=== PATIENT | female | born 1955 | race Asian ===

== ENCOUNTER 2016-08-26 20:33 | Emergency (ER) | payer MEDICAID ==
[~2016-08-26] VITALS: Ht 165.1 cm; Wt 49.9 kg
[2016-08-26 20:35] VITALS: BP_SYST 129
--- NOTE | 2016-08-26 20:35 | NUR ---
PT IN WAITING ROOM AWAITING AVAILABLE BED. STABLE.
[2016-08-26 22:10] LABS: BILIRUBIN,URINE NEGATIVE (NEGATIVE); BLOOD, URINE 2+ (NEGATIVE); CLARITY/URINE CLEAR (CLEAR); COLOR,URINE YELLOW (YELLOW); GLUCOSE,URINE NEGATIVE (NEGATIVE); KETONES,URINE NEGATIVE (NEGATIVE); LEUKOCYTE ESTERASE ,URINE NEGATIVE (NEGATIVE); NITRITE, URINE NEGATIVE (NEGATIVE); PROTEIN URINE NEGATIVE (NEGATIVE); UROBILINOGEN,URINE 0.2 (0.2-1.0)
--- NOTE | 2016-08-26 22:25 | NUR ---
Patient to ER bed 2 to gown for evaluation. Side rails up. Report given to HAILEY SHANNON.
[2016-08-26 22:28] LABS: BACTERIA,URINE RARE /HPF (None Seen); WBC,URINE 0-3 /HPF (0-3)
--- NOTE | 2016-08-26 22:40 | NUR ---
Pt came into the ER in stable condition. Pt c/o mid abd pain 09/02 since yesterday. Pt stated that pain is consistent. Pt denies any N/D. Pt stated that she recently had a colonoscopy done was told she has an ulcer and has been medicated for it. Pt has a hx of breast CA, thyroid CA, high cholesterol and pre diabetic. -sob -chest pain. No acute distress noted at this time, will continue to monitor
--- NOTE | 2016-08-26 22:45 | NUR ---
ER at bedside examining patient.
[2016-08-26 23:06] LABS: BASOPHILS % (AUTO) 0.2 % (0.0-2.0); EOSINOPHILS # (AUTO) 0.1 K/uL (0.0-0.4); HEMATOCRIT 41.7 % (36-48); HEMOGLOBIN 13.8 g/dL (12.0-16.0); LYMPHOCYTES # (AUTO) 1.4 K/uL (1.0-5.5); LYMPHOCYTES % (AUTO) 31.1 % (20.5-51.5); MEAN CORPUSCULAR HEMOGLOBIN 30 pg (27-31); MEAN CORPUSCULAR HGB CONC 33 % (32-36); MEAN CORPUSCULAR VOLUME 90 fL (79.0-98.0); MONOCYTES # (AUTO) 0.4 K/uL (0.0-1.0); MONOCYTES % (AUTO) 9.6 % (1.7-9.3); NEUTROPHILS # (AUTO) 2.6 K/uL (1.8-7.7); NEUTROPHILS % (AUTO) 57.1 % (40.0-70.0); PLATELET COUNT (AUTO) 216 K/uL (130-430); RED BLOOD CELL COUNT(AUTO) 4.65 MIL/uL (4.2-6.2); RED CELL DISTRIBUTION WIDTH 11.5 % (9.0-15.0); WHITE BLOOD COUNT (AUTO) 4.5 K/uL (4.8-10.8)
[2016-08-26 23:17] LABS: CALCIUM 8.4 mg/dL (8.4-11.0); CREATININE 0.78 mg/dL (0.55-1.30); POTASSIUM 4.1 mmol/L (3.5-5.1)
[2016-08-26 23:33] LABS: ALBUMIN 3.4 g/dL (3.4-4.8); FREE T4 (FREE THYROXINE) 1.1 ng/dL (0.6-1.6); TOTAL BILIRUBIN 0.3 mg/dL (0.0-1.0); TOTAL PROTEIN, SERUM 7.5 g/dL (6.4-8.3)
[2016-08-27 00:33] VITALS: BP_SYST 121
--- NOTE | 2016-08-27 00:33 | NUR ---
Patient given written and verbal discharge instructions and verbalizes understanding. ER MD PASTOR discussed with patient the results and treatment provided. Patient in stable condition. ID arm band removed. NO Rx given. Patient educated on pain management and to follow up with PMD. Pain Scale 0/10. Opportunity for questions provided and answered.
== END 2016-08-27 00:33 | disposition home or self-care (01) ==
LOC: SED 20:33
DX: R10.11 Right upper quadrant pain (principal); K21.9 Gastro-esophageal reflux disease without esophagitis; I10 Essential (primary) hypertension; Z85.3 Personal history of malignant neoplasm of breast; Z85.850 Personal history of malignant neoplasm of thyroid
CPT/HCPCS: 36415; 74000-TC; 76700-TC; 80053; 81000-TC; 83690-TC; 84439; 85025; 99285